=== PATIENT | male | born 1945 | race Caucasian/White ===

== ENCOUNTER → 2017-07-04 | Outpatient (CLI) | payer MEDICARE ==
--- NOTE | 2017-07-04 16:10 | MR ---
EXAMINATION TYPE: MR knee RT wo con DATE OF EXAM: 07/04/2017 COMPARISON: NONE HISTORY: Pain TECHNIQUE: Multiplanar, multisequence imaging of the right knee is performed without IV contrast. FINDINGS: MEDIAL MENISCUS: There is a linear tear involving the posterior horn the medial meniscus LATERAL MENISCUS: There is a linear tear involving the posterior horn of the lateral meniscus CRUCIATE LIGAMENTS: The anterior and posterior cruciate ligaments are intact and unremarkable. COLLATERAL LIGAMENTS: MCL and LCL are intact. There is edema adjacent to the MCL compatible with stra in. There is pseudoextrusion of the medial meniscus. EXTENSOR MECHANISM: Visualized quadriceps and patellar tendons are intact. EFFUSION: There is a moderate amount of fluid in the suprapatellar bursa. Retinaculum are intact. Pa tellar and quadriceps tendons intact.. POPLITEAL CYST: No popliteal/prescott cyst. TRICOMPARTMENT SPACES: There is moderate to severe narrowing of the medial compartment of the knee sandra int with changes of grade IV chondromalacia. Chondromalacia and joint space narrowing also noted in t he lateral compartment as well as the patellofemoral joint. BONE MARROW SIGNAL: Marrow signal alteration involving the medial tibia suggestive of marrow edema li deven reactive secondary to severe arthritic change. Similar marrow edema noted involving the medial f emoral condyle most likely reactive.. IMPRESSION: 1. 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 2. MCL strain with pseudoextrusion of the meniscus and posterior horn tear. 3. Lateral meniscal posterior horn linear tear. 4. Large amount of fluid within the suprapatellar bursa. There also is edema in the posterior soft ti ssues adjacent to the posterior margin of the medial femoral condyle. Intramuscular strain suggested without tendinous injury.
== END | disposition home or self-care (01) ==
LOC: RADMRIMAIN 14:03
PROVIDERS: ATTEND Orthopaedic Surgery
DX: S83.411A Sprain of medial collateral ligament of right knee, initial encounter (principal); S83.281A Other tear of lateral meniscus, current injury, right knee, initial encounter; M17.11 Unilateral primary osteoarthritis, right knee; M22.41 Chondromalacia patellae, right knee

== ENCOUNTER 2019-08-08 09:26 | Day surgery (SDC) | payer MEDICARE ==
[2019-08-07 09:27] VITALS: BMI 27.3
[~2019-08-08 09:26] MED LIST: LACTATED RINGERS 1,000 ML IV SCH; LIDOCAINE 1% 20 ML VIAL (10MG/ML) FOR IV START INTRADERMA PRN
[2019-08-08 10:23] VITALS: TEMP 97
[2019-08-08] MEDS ORDERED: LIDOCAINE 1% INJ 10MG/ML (20 ML MDV) ONE (11:39)
[2019-08-08] MEDS ORDERED: PROPOFOL 10 MG/ML 20 ML VIAL IV ONE (11:39)
--- NOTE | 2019-08-08 12:05 | P.PCN ---
Date of Procedure: 08/08/19 Procedure(s) Performed: BRIEF HISTORY: Patient is a 74-year-old pleasant white male, scheduled for an elective colonoscopy as a part of screening for colon rectal neoplasia. PROCEDURE PERFORMED: Colonoscopy. PREOPERATIVE DIAGNOSIS: Screening for colon cancer. IV sedation per Anesthesia. PROCEDURE: After informed consent was obtained, the patient, was brought into the endoscopy unit. IV sedation was administered by Anesthesia under continuous monitoring. Digital rectal examination was normal. Initially the Olympus CF-160 flexible video colonoscope was then inserted in the rectum, gradually advanced into the cecum without any difficulty. Careful examination was performed as the scope was gradually being withdrawn. Ileocecal valve and the appendiceal orifice were visualized and appeared normal. Prep was excellent. Mucosa of the cecum, ascending colon, transverse colon, descending colon, sigmoid colon, and rectum appeared normal. Retroflexion was performed in the rectum and no lesions were seen. The patient tolerated the procedure well. IMPRESSION: Normal-appearing colon from rectum to cecum with no evidence of colorectal neoplasia . RECOMMENDATIONS: Findings of this examination were discussed with the patient as well as his family. He was advised to have a repeat screening colonoscopy in 10 years.
[2019-08-08 12:07] VITALS: RESP 18
[2019-08-08 12:23] VITALS: BP 136/74; PULSE 67
== END 2019-08-08 12:42 | disposition home or self-care (01) ==
LOC: ORWHC2ENDO 09:26
PROVIDERS: ATTEND Internal Medicine Gastroenterology
DX: Z12.11 Encounter for screening for malignant neoplasm of colon (principal); I10 Essential (primary) hypertension; K21.9 Gastro-esophageal reflux disease without esophagitis; E78.5 Hyperlipidemia, unspecified; J45.909 Unspecified asthma, uncomplicated; Z91.048 Other nonmedicinal substance allergy status; Z79.82 Long term (current) use of aspirin; Z79.899 Other long term (current) drug therapy
CPT/HCPCS: J2001; J2704; G0121

== ENCOUNTER → 2022-09-28 | Outpatient (CLI) | payer MEDICARE ==
[2022-09-28 14:59] LABS: HCT 41.7 % (39.0-53.0); HGB 13.8 gm/dL (13.0-17.5); MCH 30.3 pg (25.0-35.0); MCV 91.9 fL (80.0-100.0); Mean Platelet Volume 9.2; Platelet Count 161 k/uL (150-450); RBC 4.54 m/uL (4.30-5.90); RDW 13.9 % (11.5-15.5)
[2022-09-28 15:22] LABS: WBC 115.2 k/uL (3.8-10.6)
[2022-09-28 15:47] LABS: Appearance,Urine Clear (Clear); Bilirubin,Urine Negative (Negative); Blood,Urine Negative (Negative); Color,Urine Yellow; Glucose,Urine (UA) Negative (Negative); Ketones,Urine Negative (Negative); Leukocyte Esterase,Urine Negative (Negative); Nitrite,Urine Negative (Negative); Protein,Urine Negative (Negative); Specific Gravity,Urine 1.019 (1.001-1.035); Urobilinogen,Urine <2.0 mg/dL (<2.0)
[2022-09-28 15:49] LABS: Lymphocytes # (M) 107.14 k/uL (1.0-4.8); Monocytes # (M) 3.46 k/uL (0-1.0); Neutrophils # (M) 5.76 k/uL (1.3-7.7); Neutrophils % (M) 5 %; Nucleated Red Blood Cells 0 /100 WBC (0-0); Total Cells Counted 200
[2022-09-28 16:23] LABS: Creatinine,Urine Random 111.4 mg/dL; Protein/Creatinine Ratio,Urine 0.081
[2022-09-29 00:14] LABS: % Iron Saturation 18.6 (15.00-50.00); African American GFR (CKD) 51.2 (60.0-200.0); Anion Gap 13.3 mmol/L (10.00-18.00); Blood Urea Nitrogen 32.5 mg/dL (9.0-27.0); Calcium 10.1 mg/dL (8.7-10.3); Carbon Dioxide 25.1 mmol/L (20.0-27.5); Magnesium 2.5 mg/dL (1.5-2.4); Non-African American GFR(CKD) 44.2 (60.0-200.0); Phosphorus 3.4 mg/dL (2.4-5.1); Potassium 5.3 mmol/L (3.5-5.5); Uric Acid 5.1 mg/dL (3.7-8.7)
[2022-09-29 00:20] LABS: Albumin 4.6 g/dL (3.8-4.9); Ferritin 32.3 ng/mL (22.0-322.0); Prostate Specific Antigen 0.5 ng/mL (0.00-6.50)
== END | disposition home or self-care (01) ==
LOC: LABT 12:33 → LABWHC1 12:33
PROVIDERS: ATTEND Urology
DX: N18.32 Chronic kidney disease, stage 3b (principal); N40.1 Benign prostatic hyperplasia with lower urinary tract symptoms
CPT/HCPCS: 36415; 80048; 81003; 82040; 82306; 82570; 82728; 83540; 83550; 83735; 83970; 84100; 84153; 84156; 84550; 85025

== ENCOUNTER 2023-08-15 13:10 | Day surgery (SDC) | payer MEDICARE ==
[~2023-08-15 13:10] MED LIST changes: +LIDOCAINE 1% (10MG/ML) FOR IV START INTRADERMA PRN; -LIDOCAINE 1% 20 ML VIAL (10MG/ML) FOR IV START INTRADERMA PRN
[2023-08-15 14:45] VITALS: TEMP 97
[2023-08-15] MEDS ORDERED: PROPOFOL 10 MG/ML 20 ML VIAL IV ONE (15:47)
[2023-08-15] MEDS ORDERED: LIDOCAINE 1% INJ 10MG/ML (20 ML MDV) ONE (15:47)
--- NOTE | 2023-08-15 16:08 | P.PCN ---
Date of Procedure: 08/15/23 Procedure(s) Performed: BRIEF HISTORY: Patient is a 78-year-old, pleasant, white male scheduled for an upper endoscopy as a part of evaluation of intermittent dysphagia to solids for the last 1 year duration. He has history of GERD and has been on Prilosec 20 mg daily.. PROCEDURE PERFORMED: Esophagogastroduodenoscopy with balloon dilation. PREOPERATIVE DIAGNOSIS: Intermittent dysphagia to solids and long-standing history of GERD. IV sedation per anesthesia. PROCEDURE: After informed consent was obtained, the patient was brought into the endoscopy unit. IV sedation was administered by Anesthesia under continuous monitoring. Initially the Olympus GIF-140 video endoscope was inserted into the mouth. Esophagus intubated without any difficulty. It was gradually advanced into the stomach and duodenum and carefully examined. The bulb and the second part of the duodenum appeared normal. The scope at this time was withdrawn to the stomach, adequately insufflated with air, and upon careful examination, mucosa of the antrum, body, cardia and the fundus appeared normal. The scope was then withdrawn into the esophagus. The GE junction was located at 39 cm from the incisors. Small hiatal hernia noted. There was a distal esophageal Schatzki's ring identified that was dilated using 18-20 mm TTS balloon for 60 seconds. Following the dilation there was mild oozing noted. The rest of the esophagus appeared normal. There were no erosions or ulcerations seen and the patient tolerated the procedure well. IMPRESSION: 1. Distal esophageal Schatzki's ring status post balloon dilation using 18-20 minutes to TTS balloon as described above. 2. Small hiatal hernia. RECOMMENDATIONS: The findings of this examination were discussed with the patient as well as his family. He was advised to be on a clear liquid diet for 2 hours. Continue omeprazole 20 mg daily and follow antireflux measures. Follow up in office if he has persistent dysphagia..
[2023-08-15 16:09] VITALS: PULSE 70
[2023-08-15 16:35] VITALS: BP 118/72; RESP 16
== END 2023-08-15 16:45 | disposition home or self-care (01) ==
LOC: ORWHC2ENDO 13:10
PROVIDERS: ATTEND Internal Medicine Gastroenterology
DX: K22.2 Esophageal obstruction (principal); K44.9 Diaphragmatic hernia without obstruction or gangrene; J45.909 Unspecified asthma, uncomplicated; K21.9 Gastro-esophageal reflux disease without esophagitis; Z79.01 Long term (current) use of anticoagulants; Z79.1 Long term (current) use of non-steroidal anti-inflammatories (NSAID); Z79.899 Other long term (current) drug therapy; Z98.890 Other specified postprocedural states
CPT/HCPCS: 43249; J2001; J2704; C1726

== ENCOUNTER 2023-11-08 07:05 | Day surgery (SDC) | payer MEDICARE, OTHER ==
[~2023-11-08 07:05] MED LIST changes: +ALPRAZolam 0.25 MG TAB PO PRN; +ALPRAZolam 0.5 MG TAB PO PRN; +ASPIRIN 325 MG TAB PO ONE; +HEPARIN SODIUM,PORCINE (1 ML) 2,500 UNIT in SODIUM CHLORIDE 0.9% 250 ML IRRIGATION PRN; +HEPARIN SODIUM,PORCINE 10,000 UNIT in SODIUM CHLORIDE 0.9% 1,000 ML IRRIGATION PRN; -LACTATED RINGERS 1,000 ML IV SCH; -LIDOCAINE 1% (10MG/ML) FOR IV START INTRADERMA PRN; +NITROGLYCERIN SL TABS 0.4 MG TAB SUBLINGUAL PRN; +SODIUM CHLORIDE 0.9% 1,000 ML in EMPTY BAG 1 BAG IV SCH
[2023-11-08] MEDS: SODIUM CHLORIDE 0.9% 1,000 ML IV ONE (07:25)
[2023-11-08 07:48] VITALS: RESP 16; TEMP 97.4
[2023-11-08 08:03] LABS: African American GFR (CKD) 59 (>60 ml/min/1.73 sqM); Anion Gap 12 mmol/L; Blood Urea Nitrogen 27 mg/dL (9-20); Calcium 8.4 mg/dL (8.4-10.2); Carbon Dioxide 19 mmol/L (22-30); Chloride 108 mmol/L (98-107); Glucose 96 mg/dL (74-99); Non-African American GFR(CKD) 51 (>60 ml/min/1.73 sqM); Sodium 139 mmol/L (137-145)
[2023-11-08 08:05] LABS: Glucose,Whole Blood 135 mg/dL (70-110)
[2023-11-08 08:15] LABS: HCT 35.4 % (39.0-53.0); HGB 12.4 gm/dL (13.0-17.5); MCH 31.7 pg (25.0-35.0); MCHC 34.9 g/dL (31.0-37.0); MCV 90.6 fL (80.0-100.0); Mean Platelet Volume 9.2; Platelet Count 139 k/uL (150-450); RBC 3.91 m/uL (4.30-5.90); RDW 14.9 % (11.5-15.5); WBC 20.4 k/uL (3.8-10.6)
[2023-11-08 08:33] LABS: Potassium 5.2 mmol/L (3.5-5.1)
[2023-11-08] MEDS ORDERED: LIDOCAINE 1% INJ 10MG/ML (20 ML MDV) ONE (08:53)
[2023-11-08] MEDS ORDERED: VERAPAMIL 2.5 MG/ML 2 ML AMP ONE (08:53)
[2023-11-08] MEDS ORDERED: HEPARIN SODIUM 1,000 UN/ML (10ML VL) ONE (08:53)
[2023-11-08 08:54] LABS: Neutrophils # (M) 4.69 k/uL (1.3-7.7); Neutrophils % (M) 23 %
[2023-11-08 08:56] LABS: Nucleated Red Blood Cells 0 /100 WBC (0-0); Total Cells Counted 100
[2023-11-08] MEDS ORDERED: fentaNYL (PF) 50 MCG/ML 2 ML AMP ONE (09:08)
[2023-11-08] MEDS: MIDAZOLAM 2 MG/2 ML VIAL IVP ONE (09:20)
[2023-11-08] MEDS: fentaNYL (PF) 50 MCG/ML 2 ML AMP IVP ONE (09:20)
[2023-11-08] MEDS: LIDOCAINE 1% INJ 10MG/ML (20 ML MDV) SQ ONE (09:22)
[2023-11-08] MEDS: VERAPAMIL SYRINGE (5 MG/10 ML) INTRAARTER ONE (09:24)
[2023-11-08] MEDS: HEPARIN SODIUM 1,000 UN/ML (10ML VL) IV ONE (09:32)
[2023-11-08] MEDS: HEPARIN SODIUM 1,000 UN/ML (10ML VL) IVP ONE (10:04)
[2023-11-08] MEDS: IOPAMIDOL-370 100ML BTL INJ ONE (10:16)
--- NOTE | 2023-11-08 10:46 | CC ---
CARDIAC CATHETERIZATION REPORT INDICATION: Shortness of breath with abnormal stress test, showing ischemia involving the apex. PROCEDURE NOTE: After obtaining informed consent, the left heart catheterization and coronary angiogram were performed via the right radial artery using standard Eileen catheters. The patient tolerated the procedure well without any obvious immediate complications. The patient received moderate conscious sedation. Total sedation time was 33 minutes. The left coronary artery was engaged using a size-4 E[place]en catheter and the right coronary artery was engaged using a size-5 Eileen catheter. Right radial artery access was obtained using Seldinger technique, a 6-[place] sheath was placed. Catheters and wires were floated into the ascending aorta under fluoroscopic guidance. The patient received verapamil and heparin per protocol. FINDINGS: 1. Hemodynamics: Left ventricular end-diastolic pressure is 18 mmHg. There is no significant gradient across the aortic valve. 2. Left ventriculogram: Left ventriculogram was not performed. 3. Angiographic data: a.Right coronary artery: The right coronary artery is a large dominant vessel. The mid RCA shows a 50% to 60% stenosis. The left main coronary artery appears calcified, but is free of significant stenosis. It divides into left anterior descending coronary artery and circumflex coronary artery. LAD in the ostial portion shows a 40% to 50% stenosis. Circumflex coronary artery is a nondominant vessel and is free of disease. CONCLUSIONS: Intermediate lesion within the mid RCA and moderate disease involving the ostial portion of the LAD. PLAN: I reviewed angiographic data with Dr. Steven, the on-call citrus peeler, who will perform IFR of both the lesions and perform stenting if necessary. MMODL / IJN: [id number] /
[2023-11-08 14:01] VITALS: BP 129/63; PULSE 54
--- NOTE | 2023-11-08 23:16 | P.PCN ---
Description of Procedure: PROCEDURES PERFORMED: iFR LAD, iFR RCA INDICATION: Abnormal stress test CONSENT:I have discussed the risks, benefits and alternative therapies for the above-mentioned procedure and for both sedation/analgesia as well as necessary blood product administration, if indicated, as they pertain to this patient. The patient has indicated understanding and acceptance of the risks and procedures discussed. PROCEDURE: After the risks, benefits and alternatives of the above mentioned procedure explained in detail with the patient, informed consent was obtained. Patient had already been taken to the catheterization lab and prepped and draped in usual fashion. A 6-[place] sheath had previously been placed in the right radial artery using modified Seldinger technique and ultrasound guidance. The decision was made to perform iFR of the LAD and RCA. Heparin had been given. A 6-[place] CLS 3.5 guide was used to engage LAD. A 0.014 pressure wire was advanced in the left main and then normalize. It was then advanced 1 cm distal to the mid LAD lesion iFR was performed and was normal at 0.92. The guide catheter was removed. Next a 6-[place] AL 0.75 guide was used to engage the RCA. A 0.014 pressure wire was advanced in the proximal RCA. It was then advanced once centimeter distal to the mid RCA lesion. iFR was performed and was normal at 0.98. The right radial sheath was removed and a TR band was placed with hemostasis achieved. The patient tolerated the procedure well. Patient was transported back to the post catheterization holding area in stable condition. Conscious Sedation: Patient was monitored under the direct supervision of myself for conscious sedation using Versed and fentanyl for a total duration of 18 minutes SELECTIVE CORONARY ARTERIOGRAPHY: LEFT MAIN: The left main is a large caliber vessel which bifurcates into the LAD and circumflex. There is distal left main 20-30% stenosis. LEFT ANTERIOR DESCENDING CORONARY ARTERY: LAD is a large caliber vessel which wraps around to the apex. There is an ostial LAD 50% stenosis followed by diffuse mid LAD 30% stenosis. LEFT CIRCUMFLEX CORONARY ARTERY: Left circumflex is a moderate caliber vessel without significant stenosis. RIGHT CORONARY ARTERY: The right coronary artery is a large caliber vessel which gives off a PDA and PLV branch and is the dominant vessel. There is a mid to distal RCA 50-60% stenosis. FINAL IMPRESSION: 1. CAD as described above including ostial LAD 50%, mid to distal RCA 50-60% stenosis. 2. iFR normal of the LAD and RCA PLAN: 1. Aggressive risk factor modification per most recent ACC/AHA guidelines. 2. Medical therapy given normal iFR.
== END 2023-11-08 14:37 | disposition home or self-care (01) ==
LOC: CATHCVL 07:05
PROVIDERS: ATTEND Internal Medicine Cardiovascular Disease
DX: I25.10 Atherosclerotic heart disease of native coronary artery without angina pectoris (principal); Z79.899 Other long term (current) drug therapy
CPT/HCPCS: 99152; 93458; 93799; 80048; 85025; C1769 ×3; C1887 ×2; C1894; J2250; J2001; J3010; J1644; Q9967